=== PATIENT | male | born 1970 | race Caucasian/White ===

== ENCOUNTER 2016-06-24 15:54 | Inpatient (IN) | payer OTHER ==
--- NOTE | ~2016-06-24 | PA ---
Unit #: [id number] #: [id number] Patient: GUILLERMO BACA [id number] [facility] [address] [place] [address] [id number] I MR#: [id number] NAME: GUILLERMO BACA. ROOM: [facility] Age: 45 Sex: M Admission Date: 06/24/2016 : 1970 Date of Assessment: Attending Physician: Sammy Paige M.D. Admitting Physician: Sammy Paige M.D. Primary Care Physician: Miranda Omer Aprn PSYCHIATRIC ASSESSMENT INFORMANTS The patient reliability, fair; chart reliability, good. CHIEF COMPLAINT Paranoia and suicidal ideation. HISTORY OF PRESENT ILLNESS Mr. Guillermo Daily is a 45-year-old male, presented with the above-mentioned complaint. The patient reported feeling paranoid. Reported that he has been diagnosed with bipolar disorder and schizophrenia in the past. The patient was last admitted from 06/18/2016 to 06/21/2016 with suicidal ideation. The patient was treated with Depakote, Haldol, and Cogentin in the past. The patient has a history of multiple admissions at [place], [place]. The patient is currently homeless, presented with suicidal ideation. The patient reported that he was released too soon from [facility]. The patient reported threatening to jump from the tenth floor parking garage. Police intervened. The patient was taken to the emergency room, arrested on a bench warrant. The patient was released this morning. The patient reports suicidal ideation with a plan to jump from a walking bridge. The patient reports noncompliant with medication. Since discharge, the patient becomes homeless after being kicked out of friend's house. The patient reported feeling hopeless, worthless, sad, depressed, decreased energy, poor sleep and appetite, declining ADLs, suicidal ideation, guarded, and paranoid. Needing inpatient admission at this time for psychiatric stabilization. PAST PSYCHIATRIC HISTORY Remarkable for history of previous treatment at multiple places as mentioned above. FAMILY HISTORY/SOCIAL HISTORY The patient has a poor support system, currently homeless. No known history of any abuse. MEDICAL HISTORY Remarkable for history of hiatal hernia, migraine headache, chronic back pain, sleep apnea, and gallstone. Musculoskeletal; muscle strength and tone, no atrophy or abnormal movement. Gait normal. MEDICATION HISTORY The patient is noncompliant with medication, but he was on Zyrtec 10 mg Unit #: [id number] #: [id number] Patient: GUILLERMO BACA D daily, naproxen 500 mg b.i.d., Reglan 10 mg a.c. and h.s., Anusol-HC suppository 25 mg daily, Periactin 4 mg t.i.d., Flexeril 10 mg p.r.n., Mylanta, Nexium 40 mg b.i.d., and Depakote 500 mg b.i.d. ALLERGIES No known drug allergies. SUBSTANCE ABUSE HISTORY The patient denied use of any drugs. REVIEW OF SYSTEMS HEENT: Eyes, clear. Ears, nose, mouth, and throat; clear. CARDIOVASCULAR: Unremarkable. RESPIRATORY: Unremarkable. GI: Unremarkable. : Unremarkable. SKIN: Unremarkable. LYMPH NODE: Unremarkable. NEUROLOGIC: Unremarkable. ENDOCRINE: Unremarkable. HEMATOLOGIC: Unremarkable. ALLERGIC/IMMUNOLOGIC: Unremarkable. MUSCULOSKELETAL: Muscle strength and tone, no atrophy or abnormal movement. Gait normal. MENTAL STATUS EXAMINATION CONSTITUTIONAL: Measurement of vital signs; temperature 98.3, pulse 88, respirations 14, and blood pressure 128/94. Height 5 feet 10 inches and weight 240 pounds. GENERAL APPEARANCE: The patient dressed casually. No facial deformity noted. MUSCULOSKELETAL: Please see above. PSYCHIATRIC EXAMINATION Description of speech; rapid, circumstantial, guarded, paranoid. Description of association; guarded, paranoid, circumstantial. Thought process; the patient reported suicidal ideation, denied any homicidal ideation, mood lability, no history of any substance abuse. Description of the patient's judgment: Concerning everyday activity, poor. Social situation, poor. Concerning psychiatric condition, poor. Complete mental status examination; oriented in time, place, and person. Attention span and concentration, poor. Recent and remote memory, fair. Language; able to name object, repeat phrases. Fund of knowledge; aware of current event, passive vocabulary intact. Mood and affect, sad and dysphoric. Insight and judgment were fair to poor. ASSETS AND LIABILITIES Assets; the patient is articulate, able to take care of his ADL. Liabilities, history of depression. ADMITTING DIAGNOSES Psychiatric: 1. Bipolar mood disorder, not otherwise specified, F31.89. 2. Rule out substance abuse disorder. 3. Anxiety disorder, not otherwise specified, F41.9. Secondary diagnosis: Deferred. Unit #: [id number] #: [id number] Patient: GUILLERMO BACA Medical diagnoses: Sleep apnea, migraine headache, chronic low back pain, hiatal hernia, gallstone, chronic constipation. Stressors: Psychosocial stressors, homelessness, financial problem, poor support system. PSYCHIATRIC PLAN, TREATMENT GOAL, AND DISCHARGE PLAN 1. Advised to admit the patient on the inpatient unit. Provide safe, supportive, and structured environment. 2. Ordered labs, UA and UDS. 3. Advised to continue with the above medications. 4. The patient is to attend all the programing on the inpatient unit. If needed, consider further adjustment of medication. 5. Treatment goal is to attain euthymic mood, gain insight into his problem, and learn coping skills. 6. Discharge plan: Plan is to stabilize the patient and consider followup in outpatient program. ESTIMATED LENGTH OF STAY 5 to 7 days. Dictated by... Sammy Paige M.D. NIKKI/armond TD: 06/25/2016 18:20 JOB #: [id number] PSYCHIATRIC ASSESSMENT X Sammy Paige MD PSYCHIATRIC ASSESSMENT
--- NOTE | ~2016-06-24 | PN ---
Unit #: [id number] #: [id number] Patient: GUILLERMO OROZCO [id number] [facility] [address] [place] [address] [id number] I MR#: [id number] NAME: GUILLERMO OROZCO. ROOM: [facility] Age: 45 Sex: M Admission Date: 06/24/2016 : 1970 Attending Physician: Sammy Paige M.D. Admitting Physician: Sammy Paige M.D. Primary Care Physician: Toni Cervantes NOTES DATE OF SERVICE: 06/26/2016 DISCUSSION Mr. Guillermo Orozco is a 45-year-old male. The patient interviewed, chart reviewed, and obtained information from nursing staff. The patient was compliant and cooperative. Mood was labile. The patient continues to be fixated on his abdominal complaints and medication. The patient reported having problem with constipation. The patient's behavior was somewhat bizarre, guarded, paranoid, mood lability, and irritability. Speech was loud. Complete review of systems unremarkable. MENTAL STATUS EXAMINATION General appearance, the patient dressed casually. Attention span and concentration, poor. Oriented in place and person. Mood and affect, labile. Speech, loud. Thought process; circumstantial, guarded, paranoid, but denied any thoughts of harming self or others, but mood lability. Recent and remote memory, poor. Insight and judgment, poor. The patient continues to have somewhat bizarre behavior on the unit. DIAGNOSIS Schizoaffective disorder, bipolar type. ASSESSMENT AND PLAN Advised to continue with current medication and therapeutic protocol. We will monitor response to medication and make further adjustment of medication if needed. Dictated by... Janis Galeana/armond TD: 06/28/2016 20:54 JOB #: [id number] Unit #: [id number] #: [id number] Patient: GUILLERMO OROZCO PROGRESS NOTES X Sammy Paige MD PROGRESS NOTE
--- NOTE | ~2016-06-24 | HP ---
Unit #: [id number] #: [id number] Patient: GUILLERMO BACA [id number] [place] [address] [id number] MR#: [id number] NAME: GUILLERMO BACA. ROOM: [facility] Age: 45 Sex: M Admission Date: 06/24/2016 : 1970 Attending Physician: Sammy Paige M.D. Admitting Physician: Sammy Paige M.D. Primary Care Physician: Miranda Omer Aprn HISTORY AND PHYSICAL NOTE Guillermo is a 45 year old admitted to [address] [place] [address] with depression and verbalizing wanting to hurt himself. He was just discharged from this facility after treatment for the same. The patient was seen and H and P dated 06/20/2016 was reviewed. This is current. No changes. Please see H and P dated 06/20/2016. Dictated by... Nancy Perez P.A.-C. for Janis Moreno/[place] TD: 06/24/2016 20:34 JOB #: [id number] HISTORY AND PHYSICAL X Nancy Perez HISTORY AND PHYSICAL
--- NOTE | ~2016-06-24 | PN ---
Unit #: [id number] #: [id number] Patient: GUILLERMO OROZCO [id number] [facility] [address] [place] [address] [id number] I MR#: [id number] NAME: GUILLERMO OROZCO. ROOM: [facility] Age: 45 Sex: M Admission Date: 06/24/2016 : 1970 Attending Physician: Sammy Paige M.D. Admitting Physician: Sammy Paige M.D. Primary Care Physician: Toni Cervantes PROGRESS NOTES DATE 06/25/2016 DISCUSSION Guillermo Orozco is a 45-year-old male seen on 06/25/2016. Patient interviewed. Chart reviewed. Mood labile, sad, dysphoric, anxious, agitated, irritable, guarded, paranoid. Complete review of system unremarkable. MENTAL STATUS EXAMINATION General appearance, patient dressed casually. Attention span, concentration fair. Oriented in place and person. Mood and affect labile. Rapid thought process, guarded, paranoid. Reported having suicidal ideation. Denied any homicidal ideation. Recent and remote memory poor. Insight and judgement poor. DIAGNOSIS Bipolar mood disorder NOS. ASSESSMENT/PLAN Advised to continue with current medication and therapeutic protocol. Will monitor response to medication and make further adjustment of medication. Dictated by... Sammy Paige M.D. NIKKI/jeanne TD: 06/26/2016 20:29 JOB #: [id number] Unit #: [id number] #: [id number] Patient: GUILLERMO OROZCO PEAWILLIAM PROGRESS NOTES X Sammy Paige MD PROGRESS NOTE
--- NOTE | ~2016-06-24 | PN ---
Unit #: [id number] #: [id number] Patient: GUILLERMO OROZCO [id number] [facility] [address] [place] [address] [id number] I MR#: [id number] NAME: GUILLERMO OROZCO. ROOM: [facility] Age: 45 Sex: M Admission Date: 06/24/2016 : 1970 Attending Physician: Sammy Paige M.D. Admitting Physician: Sammy Paige M.D. Primary Care Physician: Toni Cervantes PROGRESS NOTES DATE 06/28/2016 DISCUSSION Guillermo Orozco is a 45-year-old male seen on 06/28/2016. Patient interviewed. Chart reviewed. Obtained information from nursing staff. Patient was compliant, cooperative. Reports that he is feeling better, sleeping good, decrease in anxiety, paranoia, mood lability. Complete review of system unremarkable. MENTAL STATUS EXAMINATION General appearance, patient dressed casually. Attention span, concentration fair. Oriented in place and person. Mood and affect labile. Speech rapid. Thought process, circumstantial. Patient denied any thoughts of harming self or others but guarded. Recent and remote memory poor. Insight and judgement poor. DIAGNOSIS Bipolar mood disorder NOS. ASSESSMENT/PLAN Advised to continue with current medication and therapeutic protocol. Will monitor response to medication and make further adjustment of medication. Dictated by... Janis Galeana/jeanne TD: 06/30/2016 20:49 JOB #: [id number] Unit #: [id number] #: [id number] Patient: GUILLERMO OROZCO PROGRESS NOTES X Sammy Paige MD PROGRESS NOTE
--- NOTE | ~2016-06-24 | PN ---
Unit #: [id number] #: [id number] Patient: GUILLERMO BACA [id number] [facility] [address] [place] [address] [id number] I MR#: [id number] NAME: GUILLERMO BACA. ROOM: [facility] Age: 45 Sex: M Admission Date: 06/24/2016 : 1970 Attending Physician: Sammy Paige M.D. Admitting Physician: Sammy Paige M.D. Primary Care Physician: Toni Cervantes PROGRESS NOTES DATE OF SERVICE: 06/27/2016 DISCUSSION Guillermo Daily is a 45-year-old male, seen on 06/27/2016. The patient interviewed, chart reviewed, and obtained information from nursing staff. The patient was compliant and cooperative. Mood, labile. The patient is still having problem with anger, temper, mood lability, paranoia, isolative, guarded, withdrawn, but maintained safe behavior. Complete review of systems unremarkable. MENTAL STATUS EXAMINATION General appearance; the patient's hygiene and grooming, poor. Attention span and concentration, poor. Oriented in place and person. Mood and affect, labile. Speech was loud. Thought process; circumstantial, guarded. Recent and remote memory, poor. Insight and judgment, poor. DIAGNOSIS Bipolar mood disorder, not otherwise specified. ASSESSMENT AND PLAN Advised to continue with current medication and therapeutic protocol. We will monitor response to medication and make further adjustment of medication. Dictated by... Janis Galeana/armond TD: 06/28/2016 18:59 JOB #: [id number] JORDANA PROGRESS NOTES X Sammy Paige MD PROGRESS NOTE
--- NOTE | ~2016-06-24 | DS ---
Unit #: [id number] #: [id number] Patient: GUILLERMO BACA [id number] [place] [address] [id number] MR#: [id number] NAME: GUILLERMO BACA. ROOM: [facility] Age: 45 Sex: M Admission Date: 06/24/2016 : 1970 Discharge Date: 06/29/2016 Attending Physician: Sammy Paige M.D. Primary Care Physician: Miranda Omer Aprn DISCHARGE SUMMARY REASON FOR ADMISSION Suicidal ideation. DIAGNOSTIC STUDIES LABORATORY RESULTS: The patient refused. HOSPITAL COURSE The patient was admitted to inpatient unit on 06/24/2016 and discharged on 06/29/2016. The patient was treated on the inpatient unit with expressive therapy, medication management, psychoeducation, psychotherapy, and structured milieu. The patient showed improvement in his mood, started on Depakote, and continued on his home medications. Subsequently, the patient was discharged with a plan to follow up in outpatient program. DISCHARGE MEDICATIONS Depakote 500 mg b.i.d. for mood stabilization. The patient was to continue with home medications; Flonase 1 spray daily for allergies, Zofran 4 mg p.r.n. for nausea, Bentyl 10 mg q.i.d. for stomach cramps, Zyrtec 10 mg once daily for allergies, naproxen 500 mg b.i.d. for pain, Neurontin 300 mg b.i.d. for neuropathy, Imodium 4 mg q.i.d. p.r.n. for diarrhea, Flexeril 10 mg t.i.d. for muscle spasm, Mylicon 160 mg q.i.d. for gas, and Periactin 4 mg t.i.d. for stomach pain. DISCHARGE DIAGNOSES Psychiatric: 1. Bipolar mood disorder, not otherwise specified, F31.89. 2. Anxiety disorder, not otherwise specified, F41.9. 3. Rule out substance abuse disorder. Secondary diagnosis: Deferred. Medical diagnoses: Sleep apnea, migraine headache, chronic low back pain, hiatal hernia, gallstone, chronic constipation. Stressors: Psychosocial stressors. DISCHARGE INSTRUCTIONS The patient is to follow up in outpatient program as per perinatal social worker. CONDITION ON DISCHARGE The patient was pleasant and cooperative. Denied any psychotic symptom or any suicidal ideation. PROGNOSIS Unit #: [id number] #: [id number] Patient: GUILLERMO BACA Guarded. DIET AND ACTIVITY As tolerated. Dictated by... Janis Galeana/armond TD: 06/29/2016 19:31 JOB #: [id number] DISCHARGE SUMMARY X Sammy Paige MD X DISCHARGE SUMMARY
--- NOTE | ~2016-06-24 | A ---
[facility] Nutrition Therapy DATE: 06/25/16 Patient: GUILLERMO BACA Physician: KRYSTIN Address: [address] [facility] Room/Bed: [address], Zip: [place] [address] Admit Date: 06/24/16 Date of : [birth year] Height: 5 10 Weight: [phone] NUTRITIONAL ASSESSMENT: REASON: Consult re: stomach issues Admitting Dx: Depression and SI, has been off meds PMH: Sleep apnea, GERD, ulcers, hiatal hernia, chronic constipation, hemorrhoids, migraines, chronic LBP, gallstones Anthropometrics: Ht: 70", Wt: 240 lbs, BMI: 34 Labs: No labs available Meds: Zofran, Nexium, Loperamide, Reglan, Mylanta I/O & Bowel function: See PMH Assessment: Chart reviewed, events noted. See admitting dx and PMH above. Patient just discharged from this facility for the same dx, works at [employer] but is on medical leave, lives in a hotel. RD consulted 2' "stomach issues," see patient's PMH. Patient noted in chart to have radiculopathy and what I believe to be mesenteric ischemia, which would require medical consult. Patient reports "numerous bowel issues" and requiring different diet than offered here, issues not related to any food allergies. He is currently on a regular diet. Patient is outside at this time and is unavailable for interview. RD spoke with RN and encouraged adequate fiber and fluid intake for constipation. Discussed providing yogurt and fruit for a daily snacks, as the patient was complaining the only snacks on the floor are chips. RD will notify [facility] staff of this request. Of note, the patient refused his reglan and simethicone today. Upon admission the patient reported no weight change, appetite has been fair. RD asked RN to notify the [facility] staff of any further requests and that I would follow up with this patient, RN appreciative. See recs below. Dx: Altered GI function r/t PMH AEB RD consult. Intervention: See recs below Monitoring, Evaluation and Goals: 1. Adequate oral intake > 50% of meals with no c/o difficulties chewing/swallowing with minimal abdominal pain. 2. Gradual weight loss towards a healthy BMI range with adequate micro/macronutrient intake. Monitor: Per protocol, criteria to determine if above goals met [facility] Nutrition Therapy DATE: 06/25/16 Patient: GUILLERMO Gonzales ANGELANELY Physician: KRYSTIN Address: [address] [place] Room/Bed: P262-1 [facility], Zip: [place] [address] Admit Date: 06/24/16 Date of : [birth year] Height: 5 10 Weight: [phone] Recommendations: 1. Continue regular diet, there is not a specialized diet that is appropriate for this patient. Encourage adequate intake of fiber-rich foods and fluids to promote regular bowel movements and prevent hemorrhoids. If patient complains of any chewing/swallowing difficulties suggest FISHING HAND eval/medical consult. 2. Suggest medical consult for mesenteric ischemia. 3. Will send yogurt and fruit as daily snack- [facility] staff notified. 4. Continue GI meds. RD will follow-up Mild-moderate nutrition risk Respectfully, Reta Dixon RD, [facility] [employer] [facility] cc: client file
== END 2016-06-29 14:15 | disposition home or self-care (01) | DRG 885 ==
LOC: P2L 15:54
DX: F31.89 Other bipolar disorder (principal); F25.0 Schizoaffective disorder, bipolar type; F41.9 Anxiety disorder, unspecified; G47.30 Sleep apnea, unspecified; G43.909 Migraine, unspecified, not intractable, without status migrainosus; M54.5 Low back pain; K44.9 Diaphragmatic hernia without obstruction or gangrene; K80.80 Other cholelithiasis without obstruction; K59.00 Constipation, unspecified